=== PATIENT | female | born 1975 | race American Indian/Alaskan Native ===

== ENCOUNTER 2016-12-25 19:03 | Emergency (ER) | payer MEDICAID ==
[2016-12-25 19:13] VITALS: BP 117/75; PULSE 61; RESP 16; TEMP 98.1; O2SAT 100
--- NOTE | 2016-12-25 20:18 | ED PDOC ---
HPI:Nausea, Vomiting, Diarrhea Time Seen by Provider: 12/25/16 19:37 Chief Complaint (Nursing): Abdominal Pain Chief Complaint (Provider): nausea History/Exam Limitations: no limitations Onset/Duration Of Symptoms: Sudden Onset (about 1 hour prior to arrival) Current Symptoms Are (Timing): Still Present Associated Symptoms: Nausea. denies: Fever, Chills, Vomiting, Chest Pain, Urinary Symptoms Exacerbating Factors: None Alleviating Factors: None Additional Complaint(s): Associated with shortness of breath and abd discomfort. Was having a discussion upstairs with care team for her daughter in psychiatric floor when it started. Pt denies chest pain. Past Medical History Reviewed: Historical Data, Nursing Documentation, Vital Signs Vital Signs: Last Vital Signs Temp 98.1 F 12/25/16 19:10 Pulse 61 12/25/16 19:10 Resp 16 12/25/16 19:10 BP 117/75 12/25/16 19:10 Pulse Ox 100 12/25/16 19:10 - Medical History PMH: Anxiety, Asthma, Deep Vein Thrombosis, Seizures Denies: Chronic Kidney Disease - Surgical History Surgical History: - Family History Family History: States: No Known Family Hx - Social History Current smoker - smoking cessation education provided: No Alcohol: None Drugs: Denies - Allergies Allergies/Adverse Reactions: Allergies Allergy/AdvReac Type Severity Reaction Status Date / Time No Known Allergies Allergy Verified 04/10/16 20:14 Review of Systems ROS Statement: Except As Marked, All Systems Reviewed And Found Negative Constitutional: Negative for: Fever, Chills Cardiovascular: Negative for: Chest Pain, Edema Respiratory: Positive for: Shortness of Breath Gastrointestinal: Positive for: Nausea, Abdominal Pain. Negative for: Vomiting , Diarrhea Physical Exam - Reviewed Nursing Documentation Reviewed: Yes Vital Signs Reviewed: Yes - Physical Exam Appears: Positive for: Well, In Acute Distress Head Exam: Positive for: ATRAUMATIC, NORMOCEPHALIC Skin: Positive for: Warm, Dry Eye Exam: Positive for: EOMI, PERRL ENT: Positive for: Pharynx Is (clear) Neck: Positive for: Painless ROM, Supple Cardiovascular/Chest: Positive for: Regular Rate, Rhythm. Negative for: Murmur Respiratory: Positive for: Normal Breath Sounds. Negative for: Rales, Rhonchi, Wheezing, Respiratory Distress Gastrointestinal/Abdominal: Positive for: Soft. Negative for: Tenderness, Mass , Distended, Guarding, Rebound Extremity: Positive for: Normal ROM. Negative for: Pedal Edema Lymphatic: Negative for: Adenopathy Neurologic/Psych: Negative for: Motor/Sensory Deficits - Laboratory Results Result Diagrams: 12/25/16 21:15 12/25/16 21:15 - ECG ECG: Positive for: Interpreted By Me ECG Rhythm: Positive for: Normal ST Segment, Sinus Rhythm, Nonspecific Changes ( similar to previous ekg 03/2016) O2 Sat by Pulse Oximetry: 100 - Progress ED Course And Treament: Labs demonstrated hyperoxia and hypocarbia, c/w hyperventiliation. Pt most likely anxious Elevated INR. Pt has no bleeding and only mild anemia (stable c/w previous). Will give dose of vitamin K and recommend skip next dose of coumadin as well as more frequent INR check over the next week. Crisis eval ordered. EXAM: CT Abdomen and Pelvis Without Intravenous Contrast CLINICAL HISTORY: 41 years old, female; Pain; Abdominal pain; Generalized; Additional info: Fall abd and back pain on coumadin TECHNIQUE: Axial computed tomography images of the abdomen and pelvis without intravenous contrast. This CT exam was performed using one or more of the following dose reduction techniques: automated exposure control, adjustment of the mA and/or kV according to patient size, and/ or use of iterative reconstruction technique. EXAM DATE/TIME: 12/25/2016 10:49 PM COMPARISON: There are no prior studies for comparison. FINDINGS: Lower thorax: Heart size is at the upper limits of normal. There is a small hiatal hernia. There is minimal dependent atelectasis at the lung bases. ABDOMEN: Liver: unremarkable Gallbladder and bile ducts: Gallbladder is partially distended. Common bile duct is prominent. Pancreas: unremarkable Spleen: unremarkable Adrenals: unremarkable Kidneys and ureters: unremarkable Stomach and bowel: The stomach is partially distended. Rotation is normal. There is no obstruction. Terminal ileum is unremarkable. Appendix is unremarkable.Colon is incompletely distended which limits evaluation. Appendix: See above. PELVIS: Bladder: unremarkable Reproductive: Uterus and left adnexal structures are unremarkable. There is mild prominence of the right adnexa. ABDOMEN and PELVIS: Intraperitoneal space: There is no free air or free fluid. Bones/joints: There are degenerative changes in the osseus structures. There is mild disc bulging L5-S1. There are severe degenerative changes at the left hip. Soft tissues: There is a fat-containing umbilical hernia. There are injection granulomas in the abdominal wall. Vasculature: There is an IVC filter. Aorta is unremarkable. Lymph nodes: There is no pathologic adenopathy. IMPRESSION: No acute solid visceral or bowel injury, no fracture seen Thank you for allowing us to participate in the care of your patient. Dictated and Authenticated by: Gwen Miguel MD 12/26/2016 12:36 AM Eastern Time ([place] & [place]) Condition: Improved Disposition - Clinical Impression Clinical Impression: Anxiety, Warfarin overdosage Counseled Patient/Family Regarding: Studies Performed, Diagnosis, Need For Followup - Disposition Disposition: Routine/Home Disposition Time: 00:48 Condition: GOOD Additional Instructions: PLEASE SKIP ONE DOSE OF COUMADIN AND CAREFULLY WATCH YOUR FOODS TO AVOID ANY THAT MAY INTERACT WITH COUMADIN FUNCTION YOU NEED TO FOLLOW UP WITH YOUR DOCTOR SOON POSSIBLE Instructions: Warfarin (By mouth), Warfarin Toxicity (ED), Anxiety (ED)
[2016-12-25 20:27] LABS: ABG ALLEN TEST YES; ARTERIAL BLOOD GAS HCO3 22.2 mmol/L (21-28); ARTERIAL BLOOD GAS O2 CAPACITY 17.1 mL/dL (16-24); ARTERIAL BLOOD GAS O2 CONTENT 16.9 ML/dL (15-23); ARTERIAL BLOOD GAS PH 7.42 (7.35-7.45); ARTERIAL BLOOD GAS PO2 124 mm/Hg (80-100); ARTERIAL BLOOD HGB O2 SAT 96.4 % (95.0-98.0); CARBOXYHEMOGLOBIN 1.2 % (0.5-1.5); HHB 0.9 % (0.0-5.0); METHEMOGLOBIN 1.5 % (0.0-3.0)
[2016-12-25 20:45] LABS: RBC URINE 3 /hpf (0-3); URINE BILIRUBIN NEGATIVE (NEGATIVE); URINE BLOOD NEGATIVE (NEGATIVE); URINE COLOR YELLOW (YELLOW); URINE GLUCOSE (UA) NEG (Normal); URINE KETONE NEGATIVE (NEGATIVE); URINE LEUKOCYTE ESTERASE NEG Leu/uL (Negative); URINE PROTEIN 30 mg/dL (NEGATIVE); URINE UROBILINOGEN 0.2-1.0 mg/dL (0.2-1.0); WBC URINE 2 /hpf (0-5)
[2016-12-25 21:31] LABS: BASO # 0.1 K/uL (0.0-0.2); BASO % 0.8 % (0.0-2.0); EOS # 0.2 K/uL (0.0-0.7); EOS % 2.3 % (0.0-4.0); HEMATOCRIT 36.2 % (34.0-47.0); LYMPH # 2.1 K/uL (1.0-4.3); LYMPH % 28.3 % (20.0-40.0); MEAN CELL VOLUME 84.6 fl (81.0-99.0); MEAN CORPUSCULAR HEMOGLOBIN 27.1 pg (27.0-31.0); MEAN PLATELET VOLUME 10.1 fl (7.2-11.7); MONO # 0.4 K/uL (0.0-0.8); MONO % 5.5 % (0.0-10.0); NEUT # 4.6 K/uL (1.8-7.0); NEUT % 63.1 % (50.0-75.0); RED CELL DISTRIBUTION WIDTH 16.4 % (11.5-14.5); WHITE BLOOD COUNT 7.3 K/uL (4.8-10.8)
[2016-12-25 21:40] LABS: ALB/GLOB RATIO 1.2 (1.0-2.1); ALCOHOL SERUM < 10 mg/dl (0-10); ALKALINE PHOSPHATASE 94 U/L (38-126); ALT/SGPT 16 U/L (9-52); AST/SGOT 49 U/L (14-36); BILIRUBIN,TOTAL 1.3 mg/dl (0.2-1.3); BLOOD UREA NITROGEN 18 mg/dl (7-17); CALCIUM 9.3 mg/dL (8.4-10.2); CARBON DIOXIDE 23 mmol/L (22-30); CHLORIDE 107 mmol/L (98-107); GFR AFRICAN-AMERICAN > 60; GLUCOSE,RANDOM 72 mg/dL (65-105); LIPASE 72 U/L (23-300); POTASSIUM 5.8 MMOL/L (3.6-5.0); SODIUM 139 mmol/l (132-148); TOTAL PROTEIN 9.2 G/DL (6.3-8.2)
[2016-12-25 22:06] LABS: PARTIAL THROMBOPLASTIN TIME 54.4 SECONDS (23.3-32.5)
[2016-12-25 22:10] LABS: THYROID STIMULATING HORMONE 1.72 mIU/ML (0.46-4.68)
[2016-12-25] MEDS ORDERED: Phytonadione 10 mg/ml Inj (Adult) ONE (22:24)
--- NOTE | 2016-12-26 00:36 | CT ---
EXAM: CT Abdomen and Pelvis Without Intravenous Contrast CLINICAL HISTORY: 41 years old, female; Pain; Abdominal pain; Generalized; Additional info: Fall abd and back pain on coumadin TECHNIQUE: Axial computed tomography images of the abdomen and pelvis without intravenous contrast. This CT exam was performed using one or more of the following dose reduction techniques: automated exposure control, adjustment of the mA and/or kV according to patient size, and/or use of iterative reconstruction technique. EXAM DATE/TIME: 12/25/2016 10:49 PM COMPARISON: There are no prior studies for comparison. FINDINGS: Lower thorax: Heart size is at the upper limits of normal. There is a small hiatal hernia. There is minimal dependent atelectasis at the lung bases. ABDOMEN: Liver: unremarkable Gallbladder and bile ducts: Gallbladder is partially distended. Common bile duct is prominent. Pancreas: unremarkable Spleen: unremarkable Adrenals: unremarkable Kidneys and ureters: unremarkable Stomach and bowel: The stomach is partially distended. Rotation is normal. There is no obstruction. Terminal ileum is unremarkable. Appendix is unremarkable.Colon is incompletely distended which limits evaluation. Appendix: See above. PELVIS: Bladder: unremarkable Reproductive: Uterus and left adnexal structures are unremarkable. There is mild prominence of the right adnexa. ABDOMEN and PELVIS: Intraperitoneal space: There is no free air or free fluid. Bones/joints: There are degenerative changes in the osseus structures. There is mild disc bulging L5-S1. There are severe degenerative changes at the left hip. Soft tissues: There is a fat-containing umbilical hernia. There are injection granulomas in the abdominal wall. Vasculature: There is an IVC filter. Aorta is unremarkable. Lymph nodes: There is no pathologic adenopathy. IMPRESSION: No acute solid visceral or bowel injury, no fracture seen
--- NOTE | 2016-12-28 09:16 | CARD ---
APPROVED REPORT EKG Measurement Heart [id number] <Conclusion> Normal sinus rhythm with sinus arrhythmia Low voltage QRS Possible inferior infarct, age undetermined-not diagnostic Cannot rule out Anterior infarct, age undetermined-not diagnostic Abnormal ECG
== END 2016-12-26 02:07 | disposition home or self-care (01) ==
LOC: H.ER 19:03
DX: T45.511A Poisoning by anticoagulants, accidental (unintentional), initial encounter (principal); F41.9 Anxiety disorder, unspecified; Z86.718 Personal history of other venous thrombosis and embolism; M54.9 Dorsalgia, unspecified; R06.02 Shortness of breath; J45.909 Unspecified asthma, uncomplicated; R10.9 Unspecified abdominal pain